=== PATIENT | male | born 1980 | race African-American/Black ===

== ENCOUNTER 2022-02-15 01:58 | Emergency (ER) | payer MEDICAID, SELFPAY ==
[2022-02-15] VITALS (10 sets, daily range): BP systolic 172–223; BP diastolic 88–135; PULSE 64–125; RESP 11–22; TEMP 36.9; O2SAT 95–97; BMI 33.6
--- NOTE | 2022-02-15 | ECG_ITS ---
Test Reason : OVERDOSE Blood Pressure : / mmHG Vent. Rate : 099 BPM Atrial Rate : 099 BPM P-R Int : 152 ms QRS Dur : 092 ms QT Int : 454 ms P-R-T Axes : 058 021 087 degrees QTc Int : 582 ms Sinus rhythm with occasional Premature ventricular complexes Minimal voltage criteria for LVH, may be normal variant ( Sokolow-Llamas ) ST & T wave abnormality, consider lateral ischemia Prolonged QT Abnormal ECG No previous ECGs available Referred By: Generic ED Physician Electronically Signed By:Mani Fernandez
--- NOTE | ~2022-02-15 | CT_ITS ---
EXAMINATION: CT HEAD WITHOUT CONTRAST CLINICAL INFORMATION: Altered mental status, fall COMPARISON: None TECHNIQUE: Contiguous axial imaging was performed from the skull base to vertex without intravenous administration of contrast. This CT examination was performed using dose optimization techniques as appropriate, variously including the following: *Automated exposure control *Adjustment of mA and/or kV according to patient size (this includes techniques or standardized protocols for targeted exams where dose is matched to indication/reason for exam; i.e. extremities or head) *Use of iterative reconstruction technique DLP: 823 mGy-cm FINDINGS: There is intraparenchymal hemorrhage in the medial right frontal lobe measuring approximately 6.1 x 1.6 x 2.5 cm with a rim of surrounding edema. There is intraventricular extension with a large amount of blood products present in both lateral ventricles, third ventricle, and fourth ventricle. Ventricles appear slightly prominent in size, raising the possibility of developing hydrocephalus. Small amount of bilateral subarachnoid hemorrhage is suspected in the parafalcine frontal lobes. There is partial effacement of the suprasellar cistern, concerning for sequelae of increased intracranial pressure. There is no evidence of acute territorial infarction. [place] to white matter differentiation is well preserved. The osseous structures and soft tissues are normal. The mastoid air cells and visualized portions of the paranasal sinuses are well-aerated. CT/CT head/brain wo IV con IMPRESSION: Intraparenchymal hemorrhage in the medial right frontal lobe measuring up to 6.1 cm with significant intraventricular extension. Small volume of subarachnoid hemorrhage is also suspected. Ventricles appear slightly prominent in size, raising the possibility of developing hydrocephalus. Partial effacement of the suprasellar cistern, concerning for sequelae of increased intracranial pressure. This critical result was discussed with Dr. Angela Sinha on 02/15/2022 4:44 AM, and it was ascertained that the content and urgency of the report was understood at the time of direct communication.
--- NOTE | 2022-02-15 02:56 | ED.OVERDOSE ---
HPI - Overdose General Chief Complaint: Fall Stated Complaint: OD, NARCAN GIVEN, UNCOOPERATIVE. Time Seen by Provider: 02/15/22 02:20 Source: family Mode of arrival: EMS Limitations: altered mental status History of Present Illness HPI Narrative: Patient 41 years old with no known medical history snoring otherwise healthy 1 week ago patient had a headache and was vomiting for 2 days got better today patient went shopping came home went to bed later found him in the bathroom snoring difficult to arouse EMS arrived gave Narcan 4 mg via nasal and 2 mg IM patient woke up confused told EMS that he used drugs including fentanyl and cocaine. Per patient never used drugs in the past. Urine tox is negative small amount of vomitus was noticed and had diarrhea tonight. Patient complaining of neck pain since then no fever no chills no cough no nausea no vomiting abdominal pain. According to patient did have a history of hypertension few years ago not taking any medication Related Data Home Medications Medication Instructions Recorded Confirmed No Known Home Meds 02/15/22 Allergies Allergy/AdvReac Type Severity Reaction Status Date / Time No Known Allergies Allergy Verified 02/15/22 02:56 Review of Systems Review of Systems: Yes Unobtainable due to mental status PMFSH Social History Social History Advance Directives: No Physical Exam Vital Signs: Vital Signs: Last Vital Signs Temp 98.4 F 02/15/22 02:08 Pulse 125 H 02/15/22 05:45 Resp 21 H 02/15/22 05:24 BP 180/135 H 02/15/22 05:45 Pulse Ox 95 02/15/22 05:24 O2 Del Method 02/15/22 05:24 BMI result Body Mass Index 33.6 Appearance: Alert. Oriented X2 No acute distress. Lethargic Obese confused GCS 14 Eyes: PUPIL 2 MM BILATERAL REACTING TO LIGHT No Nystagmus ENT: Pharynx normal. Oral Mucosa moist atraumatic normocephalic Neck: Normal inspection. Neck supple. No midline tenderness Kernig and Brudzinski sign negative CVS: Normal heart rate and rhythm. Pulses normal. Respiratory: No respiratory distress. Equal air entry bilateral, no wheezing/rales/rhonchi Abdomen: Soft and nontender. Bowel sounds are present, no mass palpable, no CVA tenderness Skin: Skin warm and dry. Normal skin color. Normal skin turgor. Extremities: No lower extremity edema. No calf tenderness Neuro: Oriented X 2. No motor deficit. No sensory deficit.No cerebellar signs , cranial nerves II-XII intact Medications Administered Discontinued Medications Generic Name Dose Route Start Last Admin Trade Name Freq PRN Reason Stop Dose Admin Ceftriaxone Sodium 1 gm/ 50 mls @ 100 mls/hr 02/15/22 03:25 02/15/22 04:04 Sodium Chloride IV 02/15/22 03:54 100 mls/hr ONCE ONE Administration Sodium Chloride 1,000 mls @ 999 mls/hr 02/15/22 03:33 02/15/22 04:05 Ns IV 02/15/22 04:33 999 mls/hr .Q1H1M ONE Administration Potassium Chloride 10 meq in 100 mls @ 100 mls/hr 02/15/22 04:00 02/15/22 05:00 Potassium Chloride/H20 IV 02/15/22 07:59 100 mls/hr Q1H HARJEET Administration Ceftriaxone Sodium 1 gm/ 50 mls @ 100 mls/hr 02/15/22 04:01 02/15/22 04:34 Sodium Chloride IV 02/15/22 04:30 100 mls/hr ONCE ONE Administration Nicardipine HCl 25 mg/ Sodium 260 mls @ 0 mls/hr 02/15/22 04:45 02/15/22 05:45 Chloride IVCONT 12.5 mg/hr .Q0M HARJEET 130 mls/hr Titration Protocol Per Protocol Labetalol HCl 20 mg 02/15/22 04:29 02/15/22 04:41 Labetalol Hcl 100 Mg/20 Ml Vial IVPUSH 02/15/22 04:30 20 mg ONCE ONE Administration Labetalol HCl 20 mg 02/15/22 05:48 02/15/22 06:01 Labetalol Hcl 100 Mg/20 Ml Vial IVPUSH 02/15/22 05:49 20 mg ONCE ONE Administration Lorazepam 1 mg 02/15/22 04:29 02/15/22 04:33 Lorazepam 2 Mg/Ml Vial IVPUSH 02/15/22 04:30 1 mg ONCE ONE Administration Lorazepam 1 mg 02/15/22 05:13 02/15/22 05:16 Lorazepam 2 Mg/Ml Vial IVPUSH 02/15/22 05:14 1 mg ONCE ONE Administration Lorazepam 1 mg 02/15/22 05:45 02/15/22 05:50 Lorazepam 2 Mg/Ml Vial IVPUSH 02/15/22 05:46 1 mg ONCE ONE Administration Medical Decision Making Medical Decision Making [facility] Narrative: 245 am patient with vague history on arrival patient said he used drugs but confirmed that patient is confused and not using the drugs patient responded to Narcan given by the EMS. Lab workup was also confusing showing leukocytosis lactic acidosis without any signs of infection. CT scan head ordered to rule out ICH IV antibiotics started [address] scan showed intraventricular bleed intercerebral bleed with the cerebral edema case discussed with Dr. Ly at [facility] accepted the patient for transfer will start patient on nicardipine drip 20 mg of labetalol given. Patient U tox is negative patient's GCS is 14 [id number] ambulance here loading the patient patient received labetalol 20 mg Rocephin 2 g repeat labetalol 20 mg nicardipine drip 2 mg of Ativan for sedation another 1 mg now for agitation blood pressure 182/130 heart rate 112 Lab Data [facility] Lab Attestation statement: I reviewed the patient's lab results. Result Diagrams: 02/15/22 03:14 02/15/22 03:14 Labs: Lab Results 02/15/22 02/15/22 02/15/22 Range/Units 02:58 02:59 03:14 WBC 35.2 H* (4.8-10.8) X10*3/uL RBC 5.42 (4.60-5.80) X10*6/uL Hgb 15.5 (14.0-18.0) g/dl Hct 43.4 (42.0-52.0) % MCV 80.1 (80.0-98.0) fL MCH 28.6 (27.0-33.0) pg MCHC 35.7 (31.0-36.0) g/dl RDW 14.1 (11.0-16.0) % Plt Count 310 (160-400) X10*3/uL MPV 12.3 (9.4-12.4) fL Immature Gran % (Auto) 0.8 H (0.0-0.4) % Neut % (Auto) 87.6 H (45-73) % Lymph % (Auto) 5.5 L (20-40) % [place] % (Auto) 5.6 (2-11) % Eos % (Auto) 0.1 (0-4) % Baso % (Auto) 0.4 (0-2) % Lymph # (Auto) 2.0 (1.2-4.9) X10*3/uL [place] # (Auto) 2.0 H (0.1-1.2) X10*3/uL Eos # (Auto) 0.0 (0.0-0.4) X10*3/uL Baso # (Auto) 0.1 (0.0-0.2) X10*3/uL Abs Immat Gran (auto) 0.27 H (0.00-0.03) X10*3/uL Absolute Neuts (auto) 30.9 H (2.0-8.3) x10*3/uL Absolute Nucleated RBC 0.000 (0.0-0.012) X10*3/uL Nucleated RBC % (auto) 0.0 (0.0-0.2) /100WBC Smear Tech's Comments VERIFIED VBG pH (7.32-7.43) VBG pCO2 mmHg VBG pO2 mmHg VBG HCO3 (22-26) mmol/L VBG O2 Saturation % VBG Base Excess mmol/L Sodium (135-145) mmol/L Potassium (3.3-5.1) mmol/L Chloride (96-108) mmol/L Carbon Dioxide (22-29) mmol/L Anion Gap (12-20) BUN (9-16) mg/dL Creatinine (0.5-1.4) mg/dL Estim Creat Clear Calc Estimated GFR POC Glucose (60-115) mg/dL Random Glucose (60-115) mg/dL Lactic Acid (0.5-2.0) mmol/L Calcium (8.4-10.2) mg/dL Magnesium (1.6-2.6) mg/dL Total Bilirubin (0.0-1.0) mg/dL AST (5-37) U/L ALT (0-40) U/L Alkaline Phosphatase (39-117) U/L Total Protein (6.5-8.0) g/dL Albumin (3.5-5.0) g/dL Procalcitonin ng/mL Urine Color Yellow Urine Appearance Clear Urine pH 7.5 (5.0-9.0) Ur Specific [place] <= 1.005 (1.005-1.025) Urine Protein Negative (Neg-Trace) mg/dL Urine Glucose (UA) 250 H (Negative) mg/dL Urine Ketones Negative (Negative) mg/dL Urine Blood Negative (Negative) Urine Nitrite Negative (Negative) Ur Leukocyte Esterase Negative (Negative) Urine Opiates Screen Not Detected (Not Detect) Urine Fentanyl Screen Not Detected (Not Detect) Ur Barbiturates Screen Not Detected (Not Detect) Ur Phencyclidine Scrn Not Detected (Not Detect) Ur Amphetamines Screen Not Detected (Not Detect) U Benzodiazepines Scrn Not Detected (Not Detect) Urine Cocaine Screen Not Detected (Not Detect) U Marijuana (THC) Screen Not Detected (Not Detect) COVID-19 (KRIS) (Negative) COVID-19 Clin Com 02/15/22 02/15/22 02/15/22 Range/Units 03:14 03:14 03:17 WBC (4.8-10.8) X10*3/uL RBC (4.60-5.80) X10*6/uL Hgb (14.0-18.0) g/dl Hct (42.0-52.0) % MCV (80.0-98.0) fL MCH (27.0-33.0) pg MCHC (31.0-36.0) g/dl RDW (11.0-16.0) % Plt Count (160-400) X10*3/uL MPV (9.4-12.4) fL Immature Gran % (Auto) (0.0-0.4) % Neut % (Auto) (45-73) % Lymph % (Auto) (20-40) % [place] % (Auto) (2-11) % Eos % (Auto) (0-4) % Baso % (Auto) (0-2) % Lymph # (Auto) (1.2-4.9) X10*3/uL [place] # (Auto) (0.1-1.2) X10*3/uL Eos # (Auto) (0.0-0.4) X10*3/uL Baso # (Auto) (0.0-0.2) X10*3/uL Abs Immat Gran (auto) (0.00-0.03) X10*3/uL Absolute Neuts (auto) (2.0-8.3) x10*3/uL Absolute Nucleated RBC (0.0-0.012) X10*3/uL Nucleated RBC % (auto) (0.0-0.2) /100WBC Smear Tech's Comments VBG pH 7.39 (7.32-7.43) VBG pCO2 43 mmHg VBG pO2 34 mmHg VBG HCO3 26 (22-26) mmol/L VBG O2 Saturation 50.0 % VBG Base Excess 1.4 mmol/L Sodium 143 (135-145) mmol/L Potassium 2.4 L* (3.3-5.1) mmol/L Chloride 97 (96-108) mmol/L Carbon Dioxide 29 (22-29) mmol/L Anion Gap 19 (12-20) BUN 10 (9-16) mg/dL Creatinine 1.39 (0.5-1.4) mg/dL Estim Creat Clear Calc 88.7 Estimated GFR 56 POC Glucose (60-115) mg/dL Random Glucose 297 H (60-115) mg/dL Lactic Acid (0.5-2.0) mmol/L Calcium 9.4 (8.4-10.2) mg/dL Magnesium 1.9 (1.6-2.6) mg/dL Total Bilirubin 0.7 (0.0-1.0) mg/dL AST 40 H (5-37) U/L ALT 42 H (0-40) U/L Alkaline Phosphatase 85 (39-117) U/L Total Protein 8.0 (6.5-8.0) g/dL Albumin 4.6 (3.5-5.0) g/dL Procalcitonin 0.35 ng/mL Urine Color Urine Appearance Urine pH (5.0-9.0) Ur Specific [place] (1.005-1.025) Urine Protein (Neg-Trace) mg/dL Urine Glucose (UA) (Negative) mg/dL Urine Ketones (Negative) mg/dL Urine Blood (Negative) Urine Nitrite (Negative) Ur Leukocyte Esterase (Negative) Urine Opiates Screen (Not Detect) Urine Fentanyl Screen (Not Detect) Ur Barbiturates Screen (Not Detect) Ur Phencyclidine Scrn (Not Detect) Ur Amphetamines Screen (Not Detect) U Benzodiazepines Scrn (Not Detect) Urine Cocaine Screen (Not Detect) U Marijuana (THC) Screen (Not Detect) COVID-19 (KRIS) (Negative) COVID-19 Clin Com 02/15/22 02/15/22 02/15/22 Range/Units 03:48 03:55 04:44 WBC (4.8-10.8) X10*3/uL RBC (4.60-5.80) X10*6/uL Hgb (14.0-18.0) g/dl Hct (42.0-52.0) % MCV (80.0-98.0) fL MCH (27.0-33.0) pg MCHC (31.0-36.0) g/dl RDW (11.0-16.0) % Plt Count (160-400) X10*3/uL MPV (9.4-12.4) fL Immature Gran % (Auto) (0.0-0.4) % Neut % (Auto) (45-73) % Lymph % (Auto) (20-40) % [place] % (Auto) (2-11) % Eos % (Auto) (0-4) % Baso % (Auto) (0-2) % Lymph # (Auto) (1.2-4.9) X10*3/uL [place] # (Auto) (0.1-1.2) X10*3/uL Eos # (Auto) (0.0-0.4) X10*3/uL Baso # (Auto) (0.0-0.2) X10*3/uL Abs Immat Gran (auto) (0.00-0.03) X10*3/uL Absolute Neuts (auto) (2.0-8.3) x10*3/uL Absolute Nucleated RBC (0.0-0.012) X10*3/uL Nucleated RBC % (auto) (0.0-0.2) /100WBC Smear Tech's Comments VBG pH (7.32-7.43) VBG pCO2 mmHg VBG pO2 mmHg VBG HCO3 (22-26) mmol/L VBG O2 Saturation % VBG Base Excess mmol/L Sodium (135-145) mmol/L Potassium (3.3-5.1) mmol/L Chloride (96-108) mmol/L Carbon Dioxide (22-29) mmol/L Anion Gap (12-20) BUN (9-16) mg/dL Creatinine (0.5-1.4) mg/dL Estim Creat Clear Calc Estimated GFR POC Glucose 272 H (60-115) mg/dL Random Glucose (60-115) mg/dL Lactic Acid 5.6 H* (0.5-2.0) mmol/L Calcium (8.4-10.2) mg/dL Magnesium (1.6-2.6) mg/dL Total Bilirubin (0.0-1.0) mg/dL AST (5-37) U/L ALT (0-40) U/L Alkaline Phosphatase (39-117) U/L Total Protein (6.5-8.0) g/dL Albumin (3.5-5.0) g/dL Procalcitonin ng/mL Urine Color Urine Appearance Urine pH (5.0-9.0) Ur Specific [place] (1.005-1.025) Urine Protein (Neg-Trace) mg/dL Urine Glucose (UA) (Negative) mg/dL Urine Ketones (Negative) mg/dL Urine Blood (Negative) Urine Nitrite (Negative) Ur Leukocyte Esterase (Negative) Urine Opiates Screen (Not Detect) Urine Fentanyl Screen (Not Detect) Ur Barbiturates Screen (Not Detect) Ur Phencyclidine Scrn (Not Detect) Ur Amphetamines Screen (Not Detect) U Benzodiazepines Scrn (Not Detect) Urine Cocaine Screen (Not Detect) U Marijuana (THC) Screen (Not Detect) COVID-19 (KRIS) Negative (Negative) COVID-19 Clin Com See Note Independent Interpretation I performed an independent interpretation of an: EKG Interpretation: Normal sinus rhythm heart rate 99 beats per minute occasional PVCs LVH no acute ST wave changes no acute ischemia Radiology Impression Discussion of test interpretation with radiology: I discussed test interpretation with the radiologist and I have reviewed the radiologist's reading. Radiologist Impression: CT/CT head/brain wo IV con IMPRESSION: Intraparenchymal hemorrhage in the medial right frontal lobe measuring up to 6.1 cm with significant intraventricular extension. Small volume of subarachnoid hemorrhage is also suspected. Ventricles appear slightly prominent in size, raising the possibility of developing hydrocephalus. Partial effacement of the suprasellar cistern, concerning for sequelae of increased intracranial pressure. ? This critical result was discussed with Dr. Angela Sinha on 02/15/2022 4:44 AM, and it was ascertained that the content and urgency of the report was understood at the time of direct communication. Critical Care Time Critical Care Time Critical Care Time: Yes Total Critical Care Time: 90 Attestation: The patient was critically ill with a high probability of imminent or life threatening deterioration. I spent greater than 90 minutes of discontinuous time evaluating the patient,delivering critical care at the bedside, discussing and evaluating pertinent data with consultants. Critical care time does not include time spent performing separately billable procedures or teaching. Total time spent performing critical care was 85 minutes. Discharge Plan Discharge Clinical Impression: Acute intracerebral hemorrhage Patient Disposition: [facility] Transfer Details: To [facility] Dr. Ly neuro ICU Prescriptions: No Action No Known Home Meds Interventions: Acute Care Transfer Worksheet (ED) Last Done: 02/15/22 06:18 Discharge Date/Time: 02/15/22 06:21
[2022-02-15 03:04] LABS: Appearance Urine Clear; Color Urine Yellow; Glucose Urine UA 250 mg/dL (Negative); Leukocyte Esterase Urine Negative (Negative); Nitrite Urine Negative (Negative); PH 7.5 (5.0-9.0); Specific Gravity - Urine <= 1.005 (1.005-1.025); Urine Blood Negative (Negative); Urine Ketones Negative (Negative); Urine Protein Negative (Neg-Trace)
[2022-02-15 03:14] LABS: Amphetamine Screen Urine Not Detected (Not Detect); Barbiturates, Urine Not Detected (Not Detect); Benzodiazepines Screen Urine Not Detected (Not Detect); Cannabinoid Screen Urine Not Detected (Not Detect); Cocaine Screen Urine Not Detected (Not Detect); Fentanyl, urine Not Detected (Not Detect); Opiate Screen Urine Not Detected (Not Detect); Phencyclidine Screen Urine Not Detected (Not Detect)
[2022-02-15 03:20] LABS: Basophils Absolute Auto 0.1 X10*3/uL (0.0-0.2); Basophils Percent Auto 0.4 % (0-2); Eosinophils Percent Auto 0.1 % (0-4); Hematocrit 43.4 % (42.0-52.0); Hemoglobin 15.5 g/dl (14.0-18.0); Imm Gran Abs Auto 0.27 X10*3/uL (0.00-0.03); Imm Gran Pct Auto 0.8 % (0.0-0.4); Lymphocytes Percent Auto 5.5 % (20-40); MANUAL DIFF FLAG SCAN; Mean Corpuscular HGB Conc 35.7 g/dl (31.0-36.0); Mean Corpuscular Hemoglobin 28.6 pg (27.0-33.0); Mean Corpuscular Volume 80.1 fL (80.0-98.0); Mean Platelet Volume 12.3 fL (9.4-12.4); Monocytes Percent Auto 5.6 % (2-11); Neutrophils Absolute Auto 30.9 x10*3/uL (2.0-8.3); Neutrophils Percent Auto 87.6 % (45-73); Platelet Count 310 X10*3/uL (160-400); Red Blood Count 5.42 X10*6/uL (4.60-5.80); Red Cell Distribution Width 14.1 % (11.0-16.0); SCAN SMEAR FLAG 1
[2022-02-15 03:22] LABS: White Blood Count 35.2 X10*3/uL (4.8-10.8)
[2022-02-15 03:24] LABS: Venous Blood Gas Refer to POC result
[2022-02-15 03:25] LABS: VBG Base Excess 1.4 mmol/L; VBG HCO3 26 mmol/L (22-26); VBG pCO2 43 mmHg; VBG pH 7.39 (7.32-7.43); VBG pO2 34 mmHg
[2022-02-15 03:42] LABS: Alanine Aminotransferase 42 U/L (0-40); Albumin Level 4.6 g/dL (3.5-5.0); Alkaline Phosphatase 85 U/L (39-117); Anion Gap 19 (12-20); Aspartate Amino Transferase 40 U/L (5-37); Bilirubin Total 0.7 mg/dL (0.0-1.0); Blood Urea Nitrogen 10 mg/dL (9-16); Calcium 9.4 mg/dL (8.4-10.2); Carbon Dioxide 29 mmol/L (22-29); Chloride 97 mmol/L (96-108); Creatinine Clr Calc Pharmacy 88.7; Estimated Glomerular Filt Rate 56; Glucose Random 297 mg/dL (60-115); Potassium 2.4 mmol/L (3.3-5.1); Sodium 143 mmol/L (135-145)
[2022-02-15 03:43] LABS: SLIDE REVIEW VERIFIED
[2022-02-15 04:00] LABS: Glucose, Whole Blood 272 mg/dL (60-115)
[2022-02-15] MEDS: cefTRIAXone sodium 1 GM in 0.9 % Sodium Chloride 50 ML IV ×2 (04:04→04:34)
[2022-02-15] MEDS: 0.9 % Sodium Chloride 1,000 ML 999 ML IV (04:05)
[2022-02-15 04:07] LABS: Lactic Acid 5.6 mmol/L (0.5-2.0)
[2022-02-15] MEDS: Potassium Chloride/H20 10 MEQ/100 ML PIGGYBACK 100 MEQ IV ×2 (04:10→05:00)
[2022-02-15 04:15] LABS: Magnesium 1.9 mg/dL (1.6-2.6)
[2022-02-15] MEDS: LORazepam 2 MG/ML VIAL 1 MG IVPUSH ×3 (04:33→05:50)
[2022-02-15 04:37] LABS: Procalcitonin 0.35 ng/mL
[2022-02-15] MEDS: Labetalol HCL 100 MG/20 ML VIAL 20 MG IVPUSH ×2 (04:41→06:01)
--- NOTE | 2022-02-15 04:41 | MHC.EDTECH ---
@0429 CALL PLACED TO [facility] PT TX LINE @ DR OLMOS REQUEST RAMONE ANSWERS, TAKES PT INFO THEN REQUESTS TO SPEAK WITH DR NICKOLAS OLMOS TAKES OF CALL RIGHT AWAY [phone] CALL RECEIVED FROM RAMONE OF [facility] PT TX LINE ASKING TO SPEAK WITH DR NICKOLAS OLMOS TAKES OVER CALL RIGHT AWAY
--- NOTE | 2022-02-15 04:46 | MHC.EDTECH ---
@ 3453 CALL PLACED TO [facility] PT TX LINE TO CONFIRM WE ARE WAITING FOR ROOM ASSIGNMENT RAMONE ANSWERS AND STATES THEY NEED COVID SWAB RESULTS AND THAT YES WE ARE WAITING FOR ROOM ASSIGNMENT MADE HER AWARE THAT THE RESULTS ARE PENDING AND THAT WE ARE AWAITING RESULTS OF COVID SWAB. SHE ASKS FOR CALL BACK WITH RESULTS
[2022-02-15] MEDS: niCARdipine HCL 25 MG in 0.9 % Sodium Chloride 250 ML 52 MG IVCONT (04:55)
[2022-02-15 05:10] LABS: COVID-19 Test Negative (Negative); IDNOW Serial# BCCEAD1C
--- NOTE | 2022-02-15 05:10 | MHC.EDTECH ---
@ [phone] CALLPLACED TO [facility] PT TX LINE TO GIVE COVID RESULT OF NEGATIVE RAMONE ANSWERS, TAKES COVID RESULT, THEN STATES WE ARE STILL WAITING FOR ROOM ASSIGNMENT
--- NOTE | 2022-02-15 05:15 | MHC.EDTECH ---
@1218 CALL RECEIVED FROM LUCY OF THE PT TX LINE WITH ROOM ASSIGNMENT GAVITERRY 5, ROOM 5 RN TO RN: [phone] AND TO FAX FACE SHEET TO [phone]
--- NOTE | 2022-02-15 05:29 | MHC.EDTECH ---
@[phone] CALL PLACED TO [facility] TX TO [facility] SICU,[facility] 5 ROOM 5 NICARDEPINE AND CONTINUOUS CARDIAC MONITORING JULIUS ANSWERS, TAKES PT INFO AND MD NAME FOR STAT TRANSFER
--- NOTE | 2022-02-15 05:45 | MHC.EDTECH ---
@ [phone] CALL RECEIVED FROM LM DISPATCH THAT THE CREW IS STATING THE TX PAPERWORK BETTER BE DONE THEY WILL BE HERE @ 1434 ACTION IN ER FOR PAPERWORK, WAITING FOR REPORT
[2022-02-15 05:53] LABS: Reflex Lactate? Lactic Acid Added
== END 2022-02-15 06:21 | disposition short-term general hospital (02) ==
PROVIDERS: Emergency Provider Internal Medicine
DX: I61.5 Nontraumatic intracerebral hemorrhage, intraventricular (principal); G93.6 Cerebral edema; E87.20 Acidosis, unspecified; D72.829 Elevated white blood cell count, unspecified; E66.9 Obesity, unspecified; Z68.33 Body mass index [BMI] 33.0-33.9, adult; Z20.822 Contact with and (suspected) exposure to COVID-19
CPT/HCPCS: 36415; 70450; 80053; 80307; 81003; 82803; 82947; 83605; 83735; 84145; 85025; 87040; 87635; 93005; 96365; 96367; 96375; 96376; 99285; J0696; J2060

== ENCOUNTER 2023-04-24 08:54 | Outpatient (REF) | payer MEDICAID, SELFPAY ==
[2023-04-24 09:13] LABS: MANUAL DIFF FLAG NO
[2023-04-24 10:27] LABS: Basophils Absolute Auto 0.1 X10*3/uL (0.0-0.2); Basophils Percent Auto 0.9 % (0-2); Eosinophils Absolute Auto 0.2 X10*3/uL (0.0-0.4); Eosinophils Percent Auto 2.7 % (0-4); Hematocrit 40.6 % (42.0-52.0); Hemoglobin 13.8 g/dl (14.0-18.0); Imm Gran Abs Auto 0.02 X10*3/uL (0.00-0.03); Imm Gran Pct Auto 0.2 % (0.0-0.4); Lymphocytes Absolute Auto 2.2 X10*3/uL (1.2-4.9); Lymphocytes Percent Auto 27.7 % (20-40); Mean Corpuscular Volume 85.3 fL (80.0-98.0); Mean Platelet Volume 11.7 fL (9.4-12.4); Monocytes Absolute Auto 0.6 X10*3/uL (0.1-1.2); Monocytes Percent Auto 7.4 % (2-11); Neutrophils Percent Auto 61.1 % (45-73); Platelet Count 234 X10*3/uL (160-400); Red Blood Count 4.76 X10*6/uL (4.60-5.80); Red Cell Distribution Width 13.9 % (11.0-16.0); White Blood Count 8.1 X10*3/uL (4.8-10.8)
[2023-04-24 10:38] LABS: Appearance Urine Clear; Color Urine Yellow; Glucose Urine UA Negative (Negative); Leukocyte Esterase Urine Small (1+) (Negative); Nitrite Urine Negative (Negative); Specific Gravity - Urine 1.015 (1.005-1.025); UMIC TRIGGER UA YES; Urine Blood Negative (Negative); Urine Ketones Negative (Negative); Urine Protein Negative (Neg-Trace)
[2023-04-24 10:46] LABS: Bacteria Urine None Seen (None Seen); Hyaline Casts Urine 0-2 /LPF (0-2); RBC Urine 0-2 /HPF (0-2)
[2023-04-24 10:51] LABS: Alanine Aminotransferase 26 U/L (0-40); Albumin Level 4.4 g/dL (3.5-5.0); Alkaline Phosphatase 69 U/L (39-117); Anion Gap 11 (12-20); Aspartate Amino Transferase 20 U/L (5-37); Bilirubin Total 0.5 mg/dL (0.0-1.0); Blood Urea Nitrogen 12 mg/dL (9-16); Calcium 9.2 mg/dL (8.4-10.2); Carbon Dioxide 27 mmol/L (22-29); Chloride 109 mmol/L (96-108); Cholesterol 92 mg/dL (<200); Estimated Glomerular Filt Rate > 60; Glucose Fasting 87 mg/dL (60-99); HDL Cholesterol 35 mg/dL (>40); LDL Cholesterol Calculated 46 mg/dL (<100); Potassium 3.4 mmol/L (3.3-5.1); Sodium 144 mmol/L (135-145); Total Protein 7.6 g/dL (6.5-8.0); Triglycerides 59 mg/dL (<150)
[2023-04-24 10:52] LABS: Microalbum/Creatinine Ratio Ur 5.5 ug/mg cr (<30)
[2023-04-24 11:09] LABS: Valproate < 12.5 mcg/mL (50.0-100.0)
[2023-04-24 11:11] LABS: Prostate Specific Antigen Scr 0.68 ng/mL (<0.05-4.0)
[2023-04-24 12:07] LABS: Estimated Average Glucose 105 mg/dL; Hemoglobin A1c % 5.3 % (<6.0)
== END 2023-04-24 08:55 | disposition home or self-care (01) ==
LOC: HO.LAB 08:54
PROVIDERS: PCP Internal Medicine; Visit Provider Internal Medicine
DX: R53.83 Other fatigue (principal); E11.9 Type 2 diabetes mellitus without complications; E78.5 Hyperlipidemia, unspecified
CPT/HCPCS: 36415; 80053; 80061; 80164; 81001; 82043; 82570; 83036; 84153; 85025

== ENCOUNTER 2024-11-25 10:26 | Emergency (ER) | payer MEDICAID, SELFPAY ==
--- NOTE | ~2024-11-25 | XR_ITS ---
EXAMINATION: XR LUMBAR SPINE 2-3 VIEWS HISTORY: back pain COMPARISON: There are no prior studies for comparison. FINDINGS: AP, lateral, and coned down views of the lumbar spine are submitted. Osseous mineralization is normal. Five nonrib-bearing lumbar vertebral bodies are identified, maintaining normal height and alignment without evidence of fracture or spondylolisthesis. There is mild degenerative disc disease with disc space narrowing and osteophyte formation. The posterior elements are intact. The visualized paraspinal soft tissues are unremarkable. XR/XR lumbar spine 2-3V IMPRESSION: Mild degenerative disc disease. Electronically signed by: Ugo Dey MD 11/25/2024 11:16 AM EDT
[2024-11-25 10:37] VITALS: BP 155/74; PULSE 86; RESP 18; TEMP 36.6; O2SAT 98; BMI 40.2
--- NOTE | 2024-11-25 10:50 | ED_ITS ---
HPI - General Adult General Chief complaint: Extremity Injury, Lower Stated complaint: L side pain traveling to leg Time Seen by Provider: 11/25/24 10:54 Source: patient, RN notes reviewed and old records reviewed Mode of arrival: ambulatory Limitations: no limitations History of Present Illness ED Provider: Liset WINTERS narrative: Patient is a 44-year-old male with history of CVA presenting to the emergency department with complaint of left lower back pain for the past 2 days. Denies fall or other trauma. Denies any radiation of pain to lower extremities. Denies saddle anesthesia or bowel or bladder incontinence. Denies any urinary retention. Denies fevers, history of cancer or IV drug use. Currently rating pain at 1.5/10. Declining pain medication and states that he ?just wants to know what is going on. ? Denies any history of prior back surgeries but does note that he had back pain after being in the hospital for 3 months following his stroke. complaint: back pain Onset (ago): day(s) Related Data Previous Rx's ?Medication ?Instructions ?Recorded cyclobenzaprine 10 mg tablet 10 mg PO TID PRN muscle s pasm #10 11/25/24 tabs lidocaine 5 % topical patch 1 patch topical DAILY #15 ea 11/25/24 Allergies Allergy/AdvReac Type Severity Reaction Status Date / Time No Known Allergies Allergy Verified 11/25/24 10:39 Review of Systems Review of Systems: As per HPI Yes all other systems are reviewed and are negative Constitutional: Constitutional: Reports as per HPI [facility] Social History Social History Advance Directives: No Advance Directives Information Provided: No Do you have a plan to hurt others: No Plan Physical Exam ED Vital Signs: Vital Signs - 24 hr 11/25/24 10:37 Temperature 97.9 F Pulse Rate 86 Respiratory Rate 18 Blood Pressure 155/74 H Pulse Oximetry 98 Oxygen Delivery Method Room Air BMI result Body Mass Index 40.2 Vital signs have been reviewed and appear to be correct. Blood pressure normal. Heart rate normal. Respiratory rate normal. Temperature normal. Oxygen saturation normal. Const General: cooperative, healthy appearing and no acute distress Orientation/consciousness: oriented to person, oriented to place, oriented to time and patient oriented x3 Limitations: no limitations HENMT Head: Yes normocephalic and Yes atraumatic Ears: external ears normal General nose exam: Normal external nose present Face and sinus: Yes face symmetric Mouth: oropharynx normal and moist mucous membranes Throat: Yes uvula midline Eyes Pupils: Equal, round and reactive pupils present Neck Neck: Yes normal visual inspection and Yes supple Resp Effort & Inspection: normal respiratory effort and able to speak in complete sentences Auscultation: clear to auscultation bilaterally Cardio Rate: regular rate Rhythm: regular rhythm Heart sounds: S1 normal heart sound present and S2 normal heart sound present GI Palpation (GI): Soft to palpation and nontender Auscultation: normoactive bowel sounds General: Yes no CVA tenderness Back/Spine/Pelvis Back: no CVA tenderness Thoracic/Lumbar Spine: thoracic and lumbar spine normal to inspection, thoraco- lumbar ROM normal, pain with thoraco-lumbar ROM, No thoracic spinal tenderness and No lumbar spinal tenderness Pelvis: no pain with anterior-posterior compression Sacroiliac joints: on the left tender to palpation Skin General skin exam: elasticity normal and turgor normal Neuro General: oriented to person, oriented to place, oriented to time, patient oriented x3, gait normal, tone normal, moves all extremities, Normal light touch and pain sensation, no focal motor deficits, CN's II-XI intact bilaterally and deep tendon reflexes 2+ bilaterally Cranial nerves: Yes Equal, round and reactive pupils present Cognition (Neuro): normal cognition Motor exam (neuro): Abnormal motor strength present left lower extremity flexion 4 / 5 Extrem General: Yes full ROM, Yes no pedal edema and Yes no calf tenderness Psych Mental Status: mental status grossly normal Affect: normal affect Thought process: Normal thought process present Course Course Course Narrative: This is an RME: Additional HPI, ROS, PE not included below will be deferred to primary provider. RME assessment and note performed by: Alena Catalan PA-C This is a 44-year-old male, with a past medical history of CVA several years ago, who presents emergency department complaints of left low back pain for the last 2 days. No trauma or injury. No fevers or chills. No history of IVDA. No urinary or bowel retention or incontinence. No saddle anesthesia. Patient with tenderness palpation along the left SI joint as well as the lumbar midline spine region. He is ambulatory with steady gait. Plan: X-rays, further ER evaluation needed. Medical Decision Making Medical Decision Making [facility] Narrative: Patient is a 44-year-old male with history of CVA presenting to the emergency department with complaint of left lower back pain for the past 2 days. On exam patient is awake, A+Ox3, VS WNL, afebrile, normal neurological exam without focal deficits, physical exam findings as above. Given reported symptoms and physical exam findings, initial differential includes but is not limited to lumbar strain, lumbar radiculopathy, degenerative disc disease, disc herniation, spinal stenosis, spondylosis. Less likely vertebral fracture. Do not suspect malignancy/mass, SEA, cauda equina/cord compression. Patient declining pain medication at this time. X-ray lumbar spine notable for mild DDD. My interpretation is in agreement with the radiologist's interpretation. Results discussed with patient and all questions answered. Will send prescription for flexeril and topical lidocaine patches. Advised follow-up with PCP as necessary. Return precautions discussed. Patient verbalized understanding of and agreement with plan. Differential Diagnosis Differential Diagnoses: The differential diagnosis associated with the presentation includes As per [facility] Admission/Observation Consideration of admission/observation: Escalation of care including admission/observation considered Patient would have been admitted to the hospital and transferred to appropriate facility had their clinical presentation warranted hospital admission. Independent Interpretation I performed an independent interpretation of an: Plain X-Ray Interpretation: Lumbar x-ray notable for mild degenerative disc disease, no acute abnormality Radiology Impression Discussion of test interpretation with radiology: I have reviewed the radiologist's reading. Radiologist Impression: XR/XR lumbar spine 2-3V IMPRESSION: Mild degenerative disc disease. Independent Historian Clinical information obtained from an independent historian. History obtained from or confirmed by: Spouse External Record Review External record reviewed: Inpatient record, Office record and Outpatient record Prescription Management I considered prescription management with: Pain Medication and Other Discharge Plan Discharge Clinical Impression: DDD (degenerative disc disease), lumbar Qualifiers: Disc-related pain type: discogenic back pain only Qualified Code(s): M51.360 - Other intervertebral disc degeneration, lumbar region with discogenic back pain only Patient Disposition: Home, Self-Care Instructions: Degenerative Disc Disease (ED) Additional Instructions: You were evaluated in the emergency department today for back pain. Your evaluation did not show signs of medical conditions requiring emergent intervention at this time. We recommended that you use ibuprofen or Tylenol per package directions every 6 hours as needed for pain. If necessary, you can alternate these medications so that you take one medication every 3 hours. For instance, at noon take ibuprofen, then at 3:00 p.m. take Tylenol, then at 6:00 p.m. take ibuprofen. You have been prescribed a muscle relaxer called Flexeril (cyclobenzaprine) which you may take every 8 hours as needed for spasms. Do not drive, drink alcohol, or operate heavy machinery while taking this as it can cause drowsiness. You have been prescribed 5% topical lidocaine patches which you can wear for up to 12 hours in a 24 hour period. Do not apply heat directly over the patches. Please schedule an appointment for follow-up with your primary care physician this week for further evaluation of your symptoms. Return to the emergency department if you experience worsening back pain, difficulty walking, fevers, numbness, tingling, incontinence, groin numbness or tingling, or any other concerning symptoms. Prescriptions: New cyclobenzaprine 10 mg tablet 10 mg PO TID PRN (Reason: muscle spasm) Qty: 10 0RF lidocaine 5 % adhesive patch,medicated 1 patch topical DAILY Qty: 15 0RF Rx Instructions: leave on most painful area for up to 12 hrs Print Language: Italian
[2024-11-25 11:36] VITALS: BP 111/75; PULSE 71; RESP 18; TEMP 36.7; O2SAT 98
[2024-11-25 11:45] VITALS: BP 111/75; PULSE 71; RESP 18; TEMP 36.7; O2SAT 98
== END 2024-11-25 11:45 | disposition home or self-care (01) ==
PROVIDERS: Emergency Provider Emergency Medicine
DX: M51.362 Other intervertebral disc degeneration, lumbar region with discogenic back pain and lower extremity pain (principal); M54.50 Low back pain, unspecified
CPT/HCPCS: 72100; 99283; 99284

== ENCOUNTER → 2024-11-25 10:42 | Outpatient (BNV) | payer MEDICAID, SELFPAY | PROVIDERS: Emergency Provider Emergency Medicine; Visit Provider Radiology Diagnostic Radiology | DX: M54.50 Low back pain, unspecified (principal) | CPT/HCPCS: 72100 ==